=== PATIENT | male | born 1970 | race Caucasian/White ===

== ENCOUNTER 2017-10-03 09:46 | Emergency (ER) | payer MEDICAID | END 2017-10-03 11:35 | disposition home or self-care (01) | LOC: E/R 09:46 | DX: J20.9 Acute bronchitis, unspecified (principal) | CPT/HCPCS: 99284 ==

== ENCOUNTER 2017-10-13 09:05 | Emergency (ER) | payer MEDICAID ==
[2017-10-13] MEDS ORDERED: ALBUTEROL 0.083% (NEB) 2.5 MG/3 ML AMP (10:44)
[2017-10-13] MEDS ORDERED: IPRATROPIUM (NEB) 0.5 MG/2.5 ML AMP (10:44)
[2017-10-13] MEDS: IPRATROPIUM (NEB) 0.5 MG/2.5 ML AMP NEB ×2 (10:48→11:48)
[2017-10-13] MEDS: ALBUTEROL 0.083% (NEB) 2.5 MG/3 ML AMP NEB ×2 (10:48→11:49)
== END 2017-10-13 13:07 | disposition home or self-care (01) ==
LOC: FTE 09:05
DX: R05 Cough (principal)
CPT/HCPCS: 71045; 94640; 94664; 99284-25